=== PATIENT | male | born 1990 | race Two or more races ===

== ENCOUNTER 2025-10-03 16:57 | Emergency (ER) | payer MEDICAID, OTHER ==
[~2025-10-03] VITALS: Ht 170.2 cm; Wt 82.4 kg
--- NOTE | 2025-10-03 17:20 | ECG ---
[facility] Test Date: 2025-10-03 Test Time: 17:13:21 Pat Name: MILAGROS MATTSON Department: [facility] ED Patient ID: [id number] Room: Gender: M Speech Communication Instructor: gp : 1990 Requested By: EMERGENCY EMERGENCY Order Number: [id number] Reading MD: Maximino Rutledge Measurements Intervals [place] Rate: 95 P: 68 NV: 144 QRS: 61 QRSD: 102 T: 32 QT: 354 QTc: 445 Interpretive Statements Sinus rhythm Electronically Signed On 10-05-2025 10:58:30 PST by Maximino Rutledge Please click the below link to view image of tracing.
--- NOTE | 2025-10-03 18:41 | DVH ---
CHEST RADIOGRAPH Indication: sob Technique: Single frontal view of the chest was obtained Comparison: None FINDINGS: Lines and Tubes: None Lungs: No focal consolidation. Pleura: No effusion. No pneumothorax. Cardiomediastinal contours: Unremarkable Bones: No acute osseous abnormality. IMPRESSION: 1. Lung [place] are clear. 2. Cardiac size and pulmonary vascular markings are normal.
[2025-10-03] MEDS ORDERED: LORA-1121 PO (20:14)
[2025-10-03 20:36] VITALS: BP 131/78; RESP 17; TEMP 99.5; O2SAT 99
[2025-10-03] MEDS: LORazepam 0.5 MG TAB PO ONE (20:36)
[2025-10-03 20:47] VITALS: PULSE 95
--- NOTE | 2025-10-03 20:47 | ED.PDOC ---
History of Present Illness HPI Comments 35-year-old male, with a history of anxiety, presents with chief complaint of anxiety, with associated shortness a breath and generalized body tingling sensations, x 7 days. Patient reports symptoms being provoked due to recent life stressors, currently. Denies any homicidal or suicidal ideations, auditory or visual hallucinations, chest pain, or further acute symptoms. Chief Complaint: Shortness of Breath Time Seen by MD: 19:50 Primary Care Provider: NONE Reviewed Notes: Nurses Notes, Medications, Allergies Allergies: Coded Allergies: NO KNOWN ALLERGIES (Unverified , 02/22/12) Home Meds Active Scripts Lorazepam (ATIVAN TABLET) 0.5 Mg Tb, 2 TAB PO DAILY PRN for 5 Days, #10 TAB Prov:CASA LARSEN MD 10/03/25 Information Source: Patient Mode of Arrival: Ambulatory Severity: Moderate Timing: Days Duration: Since onset Prehospital treatment: None Past Medical History PAST MEDICAL HISTORY: Denies Surgical History: Denies all surgeries Family History Family History: Unknown Social History Smoker: Non-Smoker Alcohol: Denies ETOH Use Drugs: Denies Drug Use Lives In: Home All Other Systems: Reviewed and Negative (Comprehensive review of systems are negative unless otherwise stated in HPI) Physical Exam General Appearance: No Apparent Distress, Normal HEENT: Normal ENT Inspection, Pharynx Normal, TMs Normal Neck: Full Range of Motion, Non-Tender, Normal, Normal Inspection Respiratory: Chest Non-Tender, Lungs Clear, No Accessory Muscle Use, No Respiratory Distress, Normal Breath Sounds Cardiovascular: No Edema, No JVD, No Murmur, No Gallop, Normal Peripheral Pulses, Regular Rate/Rhythm Breast Exam: Deferred Gastrointestinal: No Organomegaly, Non Tender, No Pulsatile Mass, Normal Bowel Sounds, Soft Genitalia: Deferred Pelvic: Deferred Rectal: Deferred Extremities: No calf tenderness, Normal capillary refill, Normal inspection, Normal range of motion, Non-tender, No pedal edema Musculoskeletal : Apperance: Normal Neurologic: Alert, hydrologist II-XII nml as Tested, No Motor Deficits, Normal Mood, No Sensory Deficits, Other (Anxious affect) Cerebellar Function: Normal Reflexes: Normal Skin: Dry, Normal Color, Warm Lymphatic: No Adenopathy Was a procedure done? Was a procedure done?: No EKG EKG : Pulse Rate (adult): 95 [place]: Normal Cardiac Rhythm: NSR Block: None Hypertrophy: None ST: Normal Differential Dx Considerations may include: Anxiety, panic attack, among others X-Ray, Labs, Meds, VS Vital Signs Date Time Temp Pulse Resp B/P (MAP) Pulse Ox O2 Delivery O2 Flow Rate FiO2 10/03/25 20:36 99.5 74 17 131/78 (95) 97 99.5 10/03/25 17:13 95 10/03/25 17:00 98.0 98 18 138/98 99 98.0 Current Medications Medications (Trade) Dose Ordered Sig/Anthony Route Start Time Stop Time Status Last Admin Lorazepam (Ativan Tablet) 2 mg ONCE ONCE PO 10/03/25 20:15 10/03/25 20:16 DC 10/03/25 20:36 [place] [address] Ph: [phone] DIAGNOSTIC IMAGING Diagnostic Imaging Report : [id number] Signed PATIENT: MILAGROS MATTSON ACCT: [id number] UNIT: [id number] : 1990 LOC: ER ROOM / BED: / AGE / SEX: 35 / M ADM STATUS: REG ER SERVICE 1221 ORDERING PHYSICIAN: CASA LARSEN MD PROCEDURE(s): CXRP - CHEST PORTABLE REASON: sob ORDER NUMBER(s): [id number], ACCESSION NUMBER(s): [id number] CHEST RADIOGRAPH Indication: sob Technique: Single frontal view of the chest was obtained Comparison: None FINDINGS: Lines and Tubes: None Lungs: No focal consolidation. Pleura: No effusion. No pneumothorax. Cardiomediastinal contours: Unremarkable Bones: No acute osseous abnormality. IMPRESSION: 1. Lung [place] are clear. 2. Cardiac size and pulmonary vascular markings are normal. ATED BY: TAL NAYAK Jr., DO DICTATED DATE/TIME: 10/03/251838 SIGNED BY: TAL NAYAK Jr., DO SIGNED DATE/TIME: 10/03/251838 CC: Time of 1ST Reevaluation: 20:20 Reevaluation 1ST: Unchanged Patient Education/Counseling: Diagnosis, Treatment, Need For Follow Up Family Education/Counseling: No Family Present Additional Information Additional historians: None Previous medical visits reviewed: None Additional imaging and studies ordered and reviewed: EKG, Chest-xray Labs ordered and reviewed: None SEPSIS Sepsis Screen Date sepsis recognized/suspect: Oct 03, 2025 Time Sepsis recognized/suspect: 1702 Recent Procedure: No On Antibiotic Therapy: No Respiratory Rate >20: No Heart Rate >90: No Temp<36 C (96.8 F) or >38.3 C: No SBP <90 or MAP <65 mmHG: No New Acute Mental Status Change: No Is the patient on CPAP, BIPAP,: No Physician Orders Chest Portable (10/03/25 17:51) Vital Signs Date Time Temp Pulse Resp B/P (MAP) Pulse Ox O2 Delivery O2 Flow Rate FiO2 10/03/25 20:36 99.5 74 17 131/78 (95) 97 99.5 10/03/25 17:13 95 10/03/25 17:00 98.0 98 18 138/98 99 98.0 Medications Medications Dose Ordered Sig/Anthony Route Start Time Stop Time Status Last Admin Dose Admin Lorazepam 2 mg ONCE ONCE PO 10/03/25 20:15 10/03/25 20:16 DC 10/03/25 20:36 Departure 1 Departure Impression: Primary Impression: Anxiety reaction Disposition: HOME / SELF CARE / HOMELESS Condition: Stable Additional Instructions: You were presribed ativan for anxiety / panic attacks. Please take as directed. You should follow up with your regular doctor this week. If your symptoms worsen or you have any other concerns then please return to the ER. e-Prescriptions Lorazepam (ATIVAN TABLET) 0.5 Mg Tb 2 TAB PO DAILY PRN for 5 Days, #10 TAB Prov: CASA LARSEN MD 10/03/25 Discharged With: Self Critical Care Note Critical Care Time?: No Stability Stability form required: No Heart Score Heart Score: Heart Score Response (Comments) Value History N/A 0 EKG N/A 0 Age N/A 0 Risk Factors N/A 0 Troponin N/A 0 Total 0 I personally scribed for CASA LARSEN MD ([email or web address]) on 10/03/25 at 20:47. Electronically submitted by Sebastian Walker [email or web address]). CASA LARSEN MD Oct 03, 2025 20:47
== END 2025-10-03 20:43 | disposition home or self-care (01) ==
LOC: ER 16:57
DX: F41.1 Generalized anxiety disorder (principal); Z79.899 Other long term (current) drug therapy
CPT/HCPCS: 71045; 93005